=== PATIENT | male | born 1970 | race Two or more races ===

== ENCOUNTER 2017-04-07 03:34 | Observation (INO) | payer OTHER ==
[~2017-04-07] VITALS: Ht 170.2 cm; Wt 102.4 kg
[~2017-04-07 03:34] MED LIST: ADVIL200 MG PO; AUGMENTIN875 MG PO; BP MEDS; CLONIDINE HCL0.2 MG PO; REFLUX MED; VICODIN 5-3001 EACH PO; ZESTRIL,PRINIVI20 MG PO
[2017-04-07] MEDS ORDERED: AMLODIPINE BESY10 MG PO (03:51)
[2017-04-07] MEDS ORDERED: LISINOPRIL40 MG PO (03:52)
[2017-04-07] MEDS ORDERED: HYDROCHLOROTHIA25 MG PO (03:52)
[2017-04-07 04:12] LABS: HEMATOCRIT 38.8 % (38.0-50.0); HEMOGLOBIN 12.9 G/DL (12.5-16.6); MCH 29.1 PG (29.0-34.0); MCHC 33.2 G/DL (30.0-36.0); MCV 87.4 FL (86-99); PLATELET COUNT 277 K/uL (156-360); RBC DIS.WIDTH-CV 12.3 % (11.8-14.6); RBC DIS.WIDTH-SD 39.5 % (39-53); RED BLOOD COUNT 4.44 M/uL (4.00-5.50); WHITE BLOOD COUNT 14.4 K/uL (4.1-10.2)
[2017-04-07 04:24] LABS: INTER. NORMALIZED RATIO 1.2
[2017-04-07 04:26] LABS: ALBUMIN 3.7 g/dL (3.2-4.8)
[2017-04-07 04:27] LABS: CHLORIDE 102 mEq/L (99-109); POTASSIUM 4.1 mEq/L (3.7-5.4); PTT 26.3 SEC (25-37); SODIUM 139 mEq/L (136-147)
[2017-04-07 04:29] LABS: GLUCOSE 145 mg/dL (70-99); TOTAL PROTEIN 6.7 g/dL (6.4-8.3)
[2017-04-07 04:31] LABS: TOTAL BILIRUBIN 0.5 mg/dL (0.0-1.0)
[2017-04-07 04:32] LABS: ALKALINE PHOSPHATASE 48 IU/L (3-129)
[2017-04-07 04:33] LABS: CREATININE 1.3 mg/dL (0.6-1.3); GFR ESTIMATE (CALCULATED) > 59 mL/min/ (58.99-99999)
[2017-04-07 04:34] LABS: AST (GOT) 21 IU/L (2-34); UREA NITROGEN (BUN) 25 mg/dL (9-23)
[2017-04-07 04:35] LABS: ALT (GPT) 27 IU/L (3-49)
[2017-04-07 04:36] LABS: LIPASE 11 U/L (1.0-51.0)
[2017-04-07 04:37] LABS: TROP-I INTERPRETATION NEGATIVE; TROPONIN-I 0.04 ng/mL (0.0-0.30)
[2017-04-07 13:09] LABS: HEMATOCRIT 33.2 % (38.0-50.0); MCH 28.5 PG (29.0-34.0); MCHC 32.8 G/DL (30.0-36.0); MCV 86.9 FL (86-99); PLATELET COUNT 245 K/uL (156-360); RBC DIS.WIDTH-CV 12.5 % (11.8-14.6); RBC DIS.WIDTH-SD 39.3 % (39-53); RED BLOOD COUNT 3.82 M/uL (4.00-5.50); WHITE BLOOD COUNT 8.5 K/uL (4.1-10.2)
[2017-04-07 13:11] LABS: HEMOGLOBIN 10.9 G/DL (12.5-16.6)
[2017-04-07 15:14] LABS: HEMATOCRIT 28.9 % (38.0-50.0); HEMOGLOBIN 9.9 G/DL (12.5-16.6); MCV 85.8 FL (86-99)
[2017-04-07 18:03] VITALS: BP 132/81
[2017-04-07 20:29] VITALS: BP 134/96
[2017-04-07 23:50] VITALS: BP 167/96
[2017-04-08 02:47] LABS: HEMATOCRIT 27.6 % (38.0-50.0); HEMOGLOBIN 9.2 G/DL (12.5-16.6); MCHC 33.3 G/DL (30.0-36.0); MCV 87.1 FL (86-99); PLATELET COUNT 209 K/uL (156-360); RBC DIS.WIDTH-CV 12.6 % (11.8-14.6); RBC DIS.WIDTH-SD 40.2 % (39-53); RED BLOOD COUNT 3.17 M/uL (4.00-5.50); WHITE BLOOD COUNT 6.2 K/uL (4.1-10.2)
[2017-04-08 03:05] LABS: CHLORIDE 111 mEq/L (99-109); POTASSIUM 4.1 mEq/L (3.7-5.4); SODIUM 139 mEq/L (136-147)
[2017-04-08 03:13] LABS: GLUCOSE 98 mg/dL (70-99)
[2017-04-08 03:16] LABS: GFR ESTIMATE (CALCULATED) > 59 mL/min/ (58.99-99999)
[2017-04-08 03:17] LABS: UREA NITROGEN (BUN) 15 mg/dL (9-23)
[2017-04-08 03:20] LABS: CREATININE 0.8 mg/dL (0.6-1.3)
[2017-04-08 03:58] VITALS: BP 151/98
[2017-04-08 08:30] VITALS: BP 123/72
[2017-04-08 11:08] VITALS: BP 135/85
[2017-04-08 15:41] VITALS: BP 133/77
[2017-04-08] MEDS ORDERED: PROTONIX40 MG PO (16:15)
== END 2017-04-08 20:00 | disposition home or self-care (01) ==
LOC: EME 03:34 → EDOF 07:49 → 5WEST 07:49 → EDOF 07:49 → ENRESERV 08:07 → 5WEST 17:19
PROVIDERS: Emergency Medicine; Internal Medicine
DX: K26.4 Chronic or unspecified duodenal ulcer with hemorrhage (principal); B96.81 Helicobacter pylori [H. pylori] as the cause of diseases classified elsewhere; Z87.11 Personal history of peptic ulcer disease; I10 Essential (primary) hypertension; B19.20 Unspecified viral hepatitis C without hepatic coma; F10.10 Alcohol abuse, uncomplicated; F17.200 Nicotine dependence, unspecified, uncomplicated; Z91.030 Bee allergy status
CPT/HCPCS: 71045; 74177; 80048; 80048 91; 80053; 82140; 83605; 83690; 84484; 85014; 85018; 85027; 85610; 85730; 86850; 86900; 86901; 88305; 88342 TC; 93005; 99281; 99285; C9113; G0378; J2405; J2765; J3010; J7030; J7042